=== PATIENT | male | born 1985 | race Caucasian/White ===

== ENCOUNTER 2017-05-14 15:38 | Emergency (ER) | payer SELFPAY ==
[2017-05-14 15:53] VITALS: BP 150/72; PULSE 100; TEMP 99.6; BMI 23.1
[2017-05-14] MEDS ORDERED: ALBUTEROL SO4 2.5/IPRATROPIUM 0.5 INH SOL 3 ML VIAL.NEB. NEB ONE ×2 (16:22→16:30)
--- NOTE | 2017-05-14 16:24 | PDOC ---
History of Present Illness - General Chief Complaint: Respiratory Stated Complaint: SOB Time Seen by Provider: 05/14/17 15:59 History Source: Patient Exam Limitations: No Limitations - History of Present Illness Initial Comments: 05/14/17 16:20 31-year-old male with no past medical history except for a daily smoker presents with nasal congestion, productive cough with yellowish phlegm, and low- grade temp. Patient states has taken [id number] Mucinex along with Flonase for his nasal congestion with minimal improvement. Patient denies recent travel, recent sick contacts or recent illness. Timing/Duration: reports: week Severity: reports: moderate Possible Cause: Yes: no prior episodes Associated Symptoms: reports: cough, fever/chills, headache, nasal congestion, wheezing Past History - Travel Traveled outside of the country in the last 30 days: No - Past Medical History Allergies/Adverse Reactions: Allergies Allergy/AdvReac Type Severity Reaction Status Date / Time No Known Allergies Allergy Verified 05/14/17 15:54 Home Medications: Ambulatory Orders NK [No Known Home Medication] 05/14/17 COPD: No - Suicide/Smoking/Psychosocial Hx Smoking History: Current every day smoker Number of Cigarettes Smoked Daily: 10 Information on smoking cessation initiated: No Patient Lives Alone: No Lives with/in: spouse/SO Respiratory Specific PMHX - Complaint Specific PMHX Bronchitis: Yes Review of Systems - Review of Systems Able to Perform ROS?: Yes Constitutional: Yes: Chills, Fever HEENTM: Yes: Nose Congestion. No: Throat Pain Respiratory: Yes: Wheezing, Productive cough Cardiac (ROS): No: Symptoms Reported ABD/GI: No: Symptoms Reported Musculoskeletal: No: Symptoms Reported Integumentary: No: Symptoms Reported Neurological: Yes: Headache (frontal) *Physical Exam - Vital Signs Last Vital Signs Temp Pulse Resp BP Pulse Ox 99.6 F 100 H 20 150/72 99 05/14/17 15:51 05/14/17 15:51 05/14/17 15:51 05/14/17 15:51 05/14/17 15:51 - Physical Exam General Appearance: Yes: Nourished, Appropriately Dressed. No: Apparent Distress HEENT: positive: EOMI, REMA, TMs Normal, Pharynx Normal, Sinus Tenderness ( maxillary). negative: Pale Conjunctivae Neck: positive: Normal Thyroid, Supple. negative: Lymphadenopathy (R), Lymphadenopathy (L) Respiratory/Chest: positive: Wheezing (bilateral bases on inspiration. Rhonchi to right base) Cardiovascular: positive: Regular Rhythm, Tachycardia. negative: Murmur Integumentary: positive: Normal Color, Warm, Moist Neurologic: positive: Motor Strength 5/5 (ambulatory) ED Treatment Course - RADIOLOGY Radiology Studies Ordered: Category Date Time Status CHEST PA & LAT [RAD] Stat Radiology 05/14/17 16:18 Ordered Medical Decision Making - Medical Decision Making 05/14/17 16:24 Patient with URI complaints concerning for pneumonia versus bronchitis secondary to lung exam. Patient ordered for DuoNeb followed by a chest x-ray to rule out pneumonia versus bronchitis. 05/14/17 16:54 Chest x-ray negative for pneumonia. Patient be discharged home for treatment of acute wheezy bronchitis. *DC/Admit/Observation/Transfer Diagnosis at time of Disposition: Acute wheezy bronchitis - Discharge Dispostion Disposition: HOME Condition at time of disposition: Good - Referrals - Patient Instructions Printed Discharge Instructions: DI for Acute Bronchitis Additional Instructions: Please take medication as prescribed and avoid smoking as much as possible. If symptoms not improve over the next 5 days please follow-up with the primary care doctor and/or return to ED. - Post Discharge Activity
== END 2017-05-14 16:58 | disposition home or self-care (01) ==
LOC: JERFT 15:38
PROC: 3E0F7GC Introduction of Other Therapeutic Substance into Respiratory Tract, Via Natural or Artificial Opening (ICD-10-PCS; principal; 2017-05-14)
DX: J20.9 Acute bronchitis, unspecified (principal); F17.210 Nicotine dependence, cigarettes, uncomplicated
CPT/HCPCS: 71046-TC-FY; 99281-25